=== PATIENT | female | born 1965 | race Caucasian/White ===

== ENCOUNTER 2016-06-04 20:10 | Emergency (ER) | payer OTHER ==
[2016-06-04] MEDS ORDERED: Alum-Mag Hydrox-Simethicone Susp (30 mL) PO STA (20:43)
[2016-06-04] MEDS ORDERED: Sodium Chloride 0.9% 1,000 ML IV ONE (20:43)
[2016-06-04] MEDS ORDERED: Sodium Chloride 0.9% 1,000 ML ONE (21:12)
[2016-06-04] MEDS ORDERED: Aluminum Hydroxide/Magnesium Hydroxide Susp (30 mL) ONE (21:12)
[2016-06-04 21:34] LABS: BASO # 0.1 K/uL (0.0-0.2); BASO % 0.9 % (0.0-2.0); EOS # 0.1 K/uL (0.0-0.7); EOS % 1.2 % (0.0-4.0); HEMATOCRIT 36.9 % (34.0-47.0); LYMPH # 3.1 K/uL (1.0-4.3); LYMPH % 36.1 % (20.0-40.0); MEAN CELL VOLUME 92.3 fL (81.0-99.0); MEAN CORPUSCULAR HEMOGLOBIN 30.5 pg (27.0-31.0); MEAN PLATELET VOLUME 7.8 fL (7.2-11.7); MONO # 0.6 K/uL (0.0-0.8); MONO % 6.8 % (0.0-10.0); RED CELL DISTRIBUTION WIDTH 14.6 % (11.5-14.5); WHITE BLOOD COUNT 8.7 K/uL (4.8-10.8)
[2016-06-04 21:41] LABS: RBC URINE 5 /hpf (0-3); URINE BACTERIA FEW (<OCC); URINE BILIRUBIN NEGATIVE (NEGATIVE); URINE BLOOD NEGATIVE (NEGATIVE); URINE COLOR Yellow (YELLOW); URINE GLUCOSE (UA) NORMAL (Normal); URINE KETONE NEGATIVE (NEGATIVE); URINE LEUKOCYTE ESTERASE 3+ Leu/uL (Negative); URINE PROTEIN 1+ mg/dL (NEGATIVE); URINE UROBILINOGEN NORMAL mg/dL (0.2-1.0); WBC URINE 31 /hpf (0-5)
[2016-06-04 21:47] LABS: CHLORIDE 103 mmol/L (98-107); SODIUM 141 mmol/L (132-148)
[2016-06-04 21:48] LABS: POTASSIUM 4.3 mmol/L (3.6-5.2)
[2016-06-04 21:50] LABS: ALB/GLOB RATIO 1.4 (1.0-2.1); ALKALINE PHOSPHATASE 95 U/L (38-126); ALT/SGPT 48 U/L (9-52); AST/SGOT 55 U/L (14-36); BILIRUBIN,TOTAL 0.3 mg/dL (0.2-1.3); BLOOD UREA NITROGEN 22 mg/dL (7-17); CALCIUM 9.6 mg/dl (8.6-10.4); CARBON DIOXIDE 26 mmol/L (22-30); GFR AFRICAN-AMERICAN > 60; GLUCOSE,RANDOM 98 mg/dL (65-105); TOTAL PROTEIN 7.6 g/dL (6.3-8.3)
--- NOTE | 2016-06-04 23:18 | C.PDOC ---
Time Seen by Provider: 06/04/16 20:35 Chief Complaint (Nursing): Abdominal Pain History Per: Patient Onset/Duration Of Symptoms: Days (about 1 week), Waxing/Waning Severity: Moderate Location Of Pain/Discomfort: Diffuse, Epigastric Quality Of Discomfort: Unable To Describe, "Pain", Gas Associated Symptoms: Nausea Exacerbating Factors: Food Alleviating Factors: None Additional History Per: Prior Records Abnormal Vaginal Bleeding: No Last Menstral Period: Menopause Past Medical History Reviewed: Historical Data, Nursing Documentation, Vital Signs Vital Signs: Last Vital Signs Temp 97.4 F L 06/04/16 20:29 Pulse 75 06/04/16 20:29 Resp 18 06/04/16 20:29 BP 131/89 06/04/16 20:29 Pulse Ox 100 06/04/16 20:29 - Medical History PMH: Gastritis Surgical History: No Surg Hx Family History: States: Unknown Family Hx - Social History Hx Tobacco Use: No Hx Alcohol Use: No Hx Substance Use: No - Immunization History Hx Tetanus Toxoid Vaccination: No Hx Influenza Vaccination: No Hx Pneumococcal Vaccination: No Review Of Systems Except As Marked, All Systems Reviewed And Found Negative. Constitutional: Negative for: Fever, Weakness Cardiovascular: Negative for: Chest Pain Respiratory: Negative for: Shortness of Breath Gastrointestinal: Positive for: Nausea, Abdominal Pain. Negative for: Vomiting , Diarrhea, Melena, Hematochezia, Hematemesis Musculoskeletal: Negative for: Neck Pain Skin: Negative for: Rash Neurological: Negative for: Weakness, Numbness, Seizures, Altered Mental Status Physical Exam - Physical Exam Appears: Non-toxic, No Acute Distress Skin: Normal Color, Warm, Dry, No Rash Head: Atraumatic, Normacephalic Eye(s): bilateral: PERRL, EOMI Neck: Normal ROM, Supple Cardiovascular: Rhythm Regular Respiratory: Normal Breath Sounds, No Accessory Muscle Use Gastrointestinal/Abdominal: Soft, Tenderness (mild nonspecific), No Guarding, No Rebound Back: No CVA Tenderness Extremity: Normal ROM Neurological/Psych: Oriented x3, Normal Motor, Normal Sensation ED Course And Treatment - Laboratory Results Result Diagrams: 06/04/16 21:27 06/04/16 21:27 Lab Interpretation: Abnormal Interpretation Of Abnormal: UTI O2 Sat by Pulse Oximetry: 100 Pulse Ox Interpretation: Normal Progress Note: Pt feels much better and wants to go home. No abdominal pain at this time. Reassessment Condition: Improved Progress - Interventions Interventions:: Observation, Intravenous fluid - Medications Administered Oral: Antacid Intravenous: Antiemetic, H-2 an - Data Reviewed Data Reviewed: Lab, Old records - Patient Status Patient status: Mostly improved - Continuity of Care Discussed patient case with:: Patient, ED Nurse - Patient Plan Patient Plan: Discharge, F/U with PCP Disposition Counseled Patient/Family Regarding: Studies Performed, Diagnosis, Need For Followup, Rx Given - Disposition Referrals: Maia Richardson MD [Medical Doctor] - Disposition: HOME/ ROUTINE Disposition Time: 23:18 Condition: IMPROVED Additional Instructions: Drink plenty of fluids. Follow up with your doctor within 1 week for further evaluation and treatment, including possible endoscopy/colonoscopy. Return to the ER if you develop fever, vomiting, worsening of symptoms or if you have any other concerns. Prescriptions: Ciprofloxacin [Cipro] 1 tab PO BID #10 tab Pantoprazole Sodium [Protonix] 40 mg PO DAILY #14 ect Instructions: Abdominal Pain (ED), Urinary Tract Infection in Women (ED) Print Language: TURKMEN - Clinical Impression Clinical Impression: Abdominal pain, UTI (urinary tract infection)
[2016-06-04 23:40] VITALS: BP 128/84; PULSE 80; RESP 16; TEMP 98.2; O2SAT 99
== END 2016-06-04 23:40 | disposition home or self-care (01) ==
LOC: C.ER 20:10
DX: N39.0 Urinary tract infection, site not specified (principal)
CPT/HCPCS: 80053; 81001; 83690; 85025; 96361; 96374; 96375; 99284; J2765; J7040

== ENCOUNTER 2016-12-08 15:14 | Emergency (ER) | payer OTHER ==
[2016-12-08 15:46] VITALS: PULSE 71
--- NOTE | 2016-12-08 16:29 | C.PDOC ---
History Of Present Illness 51 year old female presents to the ED for evaluation of right lower back pain which began around 4 days ago. Patient notes her pain radiates down her right hip and right leg and is worse with walking. Additionally, patient notes her leg is usually more swollen at the end of the day. Patient has been taking Motrin and applying Bengay without significant relief. Patient denies fever, chills, chest pain, shortness of breath, recent travel or immobilizations, recent heavy lifting, or prior history of similar symptoms. Time Seen by Provider: 12/08/16 16:05 Chief Complaint (Nursing): Lower Extremity Problem/Injury History Per: Patient History/Exam Limitations: no limitations Onset/Duration Of Symptoms: Days (4) Current Symptoms Are (Timing): Still Present Recent travel outside of the [place]: No Additional History Per: Patient Past Medical History Reviewed: Historical Data, Nursing Documentation, Vital Signs Vital Signs: Last Vital Signs Temp 98.0 F 12/08/16 17:00 Pulse 71 12/08/16 17:00 Resp 20 12/08/16 17:00 BP 132/87 12/08/16 17:00 Pulse Ox 99 12/09/16 00:24 - Medical History PMH: Gastritis Family History: States: Unknown Family Hx - Social History Hx Tobacco Use: No Hx Alcohol Use: No Hx Substance Use: No - Immunization History Hx Tetanus Toxoid Vaccination: No Hx Influenza Vaccination: No Hx Pneumococcal Vaccination: No Review Of Systems Constitutional: Negative for: Fever, Chills Cardiovascular: Negative for: Chest Pain Respiratory: Negative for: Shortness of Breath Musculoskeletal: Positive for: Back Pain (right-sided, lower ), Leg Pain (right) , Other (right hip pain ) Physical Exam - Physical Exam Appears: Non-toxic, No Acute Distress Skin: Normal Color, Warm, Dry Head: Atraumatic, Normacephalic Eye(s): bilateral: Normal Inspection Oral Mucosa: Moist Neck: Supple Chest: Symmetrical, No Deformity, No Tenderness Cardiovascular: Rhythm Regular, No Murmur Respiratory: Normal Breath Sounds, No Rales, No Rhonchi, No Wheezing Back: Normal Inspection, No Vertebral Tenderness, No Paraspinal Tenderness, Straight Leg Raising (positive, at 20-30 degrees ), Other (back is atraumatic ) Extremity: Normal ROM, Calf Tenderness (right ), Capillary Refill (less than 2 seconds ), No Swelling Neurological/Psych: Oriented x3, Normal Speech, Normal Cognition Gait: Steady ED Course And Treatment O2 Sat by Pulse Oximetry: 99 (on RA) Pulse Ox Interpretation: Normal Disposition Counseled Patient/Family Regarding: Diagnosis, Need For Followup, Rx Given - Disposition Referrals: [facility] [Outside] [facility] [Outside] Disposition: HOME/ ROUTINE Disposition Time: 16:52 Condition: IMPROVED Prescriptions: Cyclobenzaprine [Flexeril] 10 mg PO TID #15 tab Dexamethasone [Decadron] 8 mg PO ONCE #2 tab Ibuprofen [Motrin] 600 mg PO Q6 #30 tab Instructions: Sciatica (ED) Forms: [email or web address] (Yoruba), Work Excuse Print Language: KINYARWANDA - Clinical Impression Clinical Impression: Sciatic leg pain - Scribe Statement The provider has reviewed the documentation as recorded by the Scribe (Josephine Whalen) Provider Attestation: All medical record entries made by the Scribe were at my direction and personally dictated by me. I have reviewed the chart and agree that the record accurately reflects my personal performance of the history, physical exam, medical decision making, and the department course for this patient. I have also personally directed, reviewed, and agree with the discharge instructions and disposition.
[2016-12-08 17:26] VITALS: BP 132/87; RESP 20; TEMP 98
[2016-12-09 00:22] VITALS: O2SAT 99
== END 2016-12-08 17:00 | disposition home or self-care (01) ==
LOC: C.ER 15:14
DX: M54.30 Sciatica, unspecified side (principal)